=== PATIENT | female | born 1995 | race Caucasian/White ===

== ENCOUNTER 2019-03-04 00:52 | Emergency (ER) | payer OTHER ==
[~2019-03-04] VITALS: Ht 157.5 cm; Wt 74.8 kg
[2019-03-04 01:05] VITALS: Ht 157.5 cm; Wt 74.8 kg
--- NOTE | 2019-03-04 02:29 | ERD ---
ER Documentation Chief Complaint Chief Complaint L ankle swelling X 1 day after bitten by mosquitos HPI This is a 23-year-old female who presents emergency department with complaints of left ankle swelling for about a day. Stated that she was bitten by a mosquito. LMP: March 02, 2019. G0, . Denies headache, head injury, loss of consciousness, dizziness, neck pain, neck stiffness, throat pain, difficulty swallowing, difficulty breathing lying flat, shoulder pain, chest pain, back pain, abdominal pain, nausea, vomiting, constipation, diarrhea, urinary symptoms, or possibility being , loss of bowel and bladder control, trauma, injury, falls, difficulty walking due to pain, numbness or tingling sensation, calf pain, recent travel, recent major surgery in the last 3 weeks, calf pain, recent long travel, recent exposure to any illness, recent antibiotic use in the last 3 months, fever, chills, seizures. Past medical history: Denies. Surgical history: Denies. Social: Denies smoking, use of alcoholic beverages, use of illegal drugs. ROS All systems reviewed and are negative except as per history of present illness. Medications Home Meds Active Scripts Ibuprofen* (Motrin*) 800 Mg Tab, 800 MG PO Q6H PRN for PAIN AND OR ELEVATED TEMP, #30 TAB Prov:PASILABAN,KLAR F 03/04/19 Cephalexin* (Keflex*) 500 Mg Capsule, 500 MG PO TID for 7 Days, CAP Prov:PASILABAN,KLAR F 03/04/19 Allergies Allergies: Coded Allergies: No Known Allergy (Unverified , 07/31/14) PMhx/Soc History of Surgery: No Anesthesia Reaction: No Hx Neurological Disorder: No Hx Respiratory Disorders: No Hx Cardiac Disorders: No Hx Psychiatric Problems: No Hx Miscellaneous Medical Probl: No Hx Alcohol Use: No Hx Substance Use: No Hx Tobacco Use: No Smoking Status: Never smoker Physical Exam Vitals Physical Exam Const: No acute distress Head: Atraumatic Eyes: Normal Conjunctiva ENT: Normal External Ears, Nose and Mouth. Neck: Full range of motion. No meningismus. Resp: Clear to auscultation bilaterally Cardio: Regular rate and rhythm, no murmurs Abd: Soft, non tender, non distended. Normal bowel sounds Skin: No petechiae or rashes Back: No midline or flank tenderness Ext: No cyanosis, or edema. Left ankle: No obvious deformity. Swelling laterally. Skin is mildly warm to touch. Good and full range of motion. Very low suspicion for septic joint. Left pedal pulses within normal limits. Distal area of the left tibia and fibula are unremarkable. Left foot: No deformity. No tenderness. Left pedal pulses within normal limits. Capillary feels to left lower extremity is less than 2 seconds. Symmetrical knees. Bilateral hips are stable and unremarkable. Right lower extremity is unremarkable. No neurovascular deficit. Neur: Awake and alert. No neurological deficits. Psych: Normal Mood and Affect Results 24 hrs Current Medications Medications Dose Sig/Brian Start Time Status Last (Trade) Ordered Route PRN Stop Time Admin Dose Reason Admin Cephalexin 500 mg ONCE ONCE 03/04/19 DC 03/04/19 (Keflex) PO 02:30 03/04/19 02:41 02:31 Ibuprofen 800 mg ONCE ONCE 03/04/19 DC 03/04/19 (Motrin) PO 02:30 03/04/19 02:42 02:31 Procedures/MDM Diagnostic tests: Offered diagnostic test but patient strongly refused. Treatment: Keflex. Motrin. Re-evaluation: Denies pain. No neurovascular deficits. Stated that she feesl comfortable to go home. Differential diagnosis I have low suspicion for septic joint, open fracture, fracture, DVT. Final diagnosis: Cellulitis secondary to insect bite. Prescription: Keflex. Motrin. Benadryl. Follow-up with PCP in the next 24-48 hours. Come back here in the emergency department for any new symptoms or any worsening symptoms. All questions and concerns were answered. Patient and family members verbalized understanding and agreed with plan of care. Hemodynamically stable on discharge. Departure Diagnosis: Primary Impression: Insect bite Additional Impression: Cellulitis Condition: Stable Additional Instructions: Follow-up with PCP in the next 24-48 hours. Come back here in the emergency department for any new symptoms or any worsening symptoms. AARON MANE Mar 04, 2019 02:29
[2019-03-04] MEDS ORDERED: CEPHALEXIN 500 MG CAP PO ONE (02:30)
[2019-03-04] MEDS ORDERED: IBUPROFEN 800 MG TAB PO ONE (02:30)
[2019-03-04] MEDS ORDERED: CEPH-443 PO (02:48)
[2019-03-04] MEDS ORDERED: IBUP800T48 PO (02:49)
[2019-03-04 03:01] VITALS: BP 123/81; PULSE 69; RESP 18
== END 2019-03-04 03:02 | disposition home or self-care (01) ==
LOC: FTE 00:52
DX: S90.562A Insect bite (nonvenomous), left ankle, initial encounter (principal); L03.116 Cellulitis of left lower limb; W57.XXXA Bitten or stung by nonvenomous insect and other nonvenomous arthropods, initial encounter; Y92.9 Unspecified place or not applicable
CPT/HCPCS: Z7502; Z7610; 99283